=== PATIENT | female | born 1955 | race Caucasian/White ===

== ENCOUNTER → 2021-04-01 | Outpatient (CLI) | payer MEDICARE, OTHER ==
[~2021-04-01] MED LIST: INSDET100; METF500 PO
== END | disposition home or self-care (01) ==
LOC: LAB SHORT 17:04
DX: N39.0 Urinary tract infection, site not specified (principal)
CPT/HCPCS: 87077; 87086; 87186

== ENCOUNTER → 2021-08-05 | Outpatient (CLI) | payer MEDICARE, OTHER | END | disposition home or self-care (01) | LOC: LAB 15:57 → LAB SHORT 15:57 | DX: N39.0 Urinary tract infection, site not specified (principal) | CPT/HCPCS: 87077; 87086; 87186 ==

== ENCOUNTER → 2022-08-04 | Outpatient (CLI) | payer MEDICARE, OTHER | END | disposition home or self-care (01) | LOC: LAB 17:54 → LAB SHORT 17:54 | DX: R30.0 Dysuria (principal); R30.9 Painful micturition, unspecified | CPT/HCPCS: 87077; 87086; 87186 ==

== ENCOUNTER 2022-08-25 05:42 | Day surgery (SDC) | payer MEDICARE, OTHER ==
[~2022-08-25] VITALS: Ht 160 cm; Wt 84.8 kg
[2022-08-25] VITALS (22 sets, daily range): BP systolic 94–153; BP diastolic 48–106
[~2022-08-25 05:42] MED LIST changes: +ATOR10 PO; +BENADRYL25 MG; +METO50ER PO; +Prinivil10 MG PO
--- NOTE | 2022-08-25 12:53 | NUR ---
REPORT FROM ROULA NICHOLE RN. PT AXOX4, ABLE TO REPOSITION SELF IN BED. REPORTS DIZZINESS AND NAUSEA WHEN TRYING TO SNACK ON CRACKERS AND DRINK WATER. PT ALSO STATES 5/10 SHARP PAIN R INCISION SITE. PT REPOSITOINED, ICE PACK PROVIDED, ANTINAUSEA MED ORDERED PER DISCHARGE INSTRUCTIONS.
--- NOTE | 2022-08-25 13:44 | NUR ---
Patient up to Ambulate independently. Gait steady. Discharge instructions reviewed with patient. Patient verbalizes understanding. Copy given to patient to take home. Dressing to procedure site clean, dry, intact with no visible drainage, swelling, erythema or bruising noted. Patient States Post-Procedure ride home has been arranged. Discharged via wheelchair to private car for ride home. ALL BELONGINGS RETURNED TO PATIENT TO INCLUDE PRESCRIPTION GLASSES.
== END 2022-08-25 11:46 | disposition home or self-care (01) ==
LOC: ORSCMMR 05:42 → ORD 07:30 → ORSCMMR 07:30
PROVIDERS: Surgery
PROC: 8E0W4CZ Robotic Assisted Procedure of Trunk Region, Percutaneous Endoscopic Approach (ICD-10-PCS; principal; 2022-08-25 07:30)
PROC: 0YUA4JZ Supplement Bilateral Inguinal Region with Synthetic Substitute, Percutaneous Endoscopic Approach (ICD-10-PCS; principal; 2022-08-25 07:30)
DX: K40.00 Bilateral inguinal hernia, with obstruction, without gangrene, not specified as recurrent (principal); K41.20 Bilateral femoral hernia, without obstruction or gangrene, not specified as recurrent; K45.8 Other specified abdominal hernia without obstruction or gangrene; K21.9 Gastro-esophageal reflux disease without esophagitis; I12.9 Hypertensive chronic kidney disease with stage 1 through stage 4 chronic kidney disease, or unspecified chronic kidney disease; E11.22 Type 2 diabetes mellitus with diabetic chronic kidney disease; N18.30 Chronic kidney disease, stage 3 unspecified; Z79.84 Long term (current) use of oral hypoglycemic drugs; Z79.899 Other long term (current) drug therapy; Z87.891 Personal history of nicotine dependence
CPT/HCPCS: 49650; S2900; 82947; A9270; C1781; J1100; J1170; J1885; J2370; J2405; J2704; J2795; J3010; J7120

== ENCOUNTER → 2023-04-16 | Outpatient (CLI) | payer MEDICARE, OTHER | LOC: LAB SHORT 11:11 → LAB 11:11 | DX: N39.0 Urinary tract infection, site not specified (principal) | CPT/HCPCS: 87077; 87086; 87186 ==

== ENCOUNTER → 2023-10-14 | Outpatient (CLI) | payer MEDICARE, OTHER ==
[2023-10-14 13:52] LABS: BASOPHILS ABSOLUTE AUTO 0.07 K/mm3 (0.00-0.23); BASOPHILS PERCENT AUTO 1 % (0-2); EOSINOPHILS ABSOLUTE AUTO 0.16 K/mm3 (0.00-0.68); EOSINOPHILS PERCENT AUTO 1 % (0-6); Hematocrit 38.7 % (33.0-51.0); Hemoglobin 12.1 g/dL (11.5-16.0); IMMATURE GRAN ABSOLUTE AUTO 0.06 K/mm3 (0.00-0.10); IMMATURE GRAN PERCENT AUTO 1 % (0-1); LYMPHOCYTES ABSOLUTE AUTO 2.08 K/mm3 (0.84-5.20); LYMPHOCYTES PERCENT AUTO 18 % (21-46); MONOCYTES ABSOLUTE AUTO 0.74 K/mm3 (0.16-1.47); MONOCYTES PERCENT AUTO 6 % (4-13); Mean Corpuscular HGB 28.3 pg (26.0-34.0); Mean Corpuscular HGB Conc 31.3 g/dL (31.5-36.5); Mean Corpuscular Volume 90 fL (80-100); Mean Platelet Volume 10.7 fL (9.1-12.4); NEUTROPHILS ABSOLUTE AUTO 8.68 K/mm3 (1.96-9.15); NEUTROPHILS PERCENT AUTO 74 % (41-73); Platelet Count 196 K/mm3 (150-400); RDW Coefficient Variation 13.7 % (11.7-14.2); Red Blood Cell Count 4.28 M/mm3 (3.80-5.20); White Blood Cell Count 11.79 K/mm3 (4.00-11.30)
[2023-10-14 14:03] LABS: Albumin, Blood 3.6 g/dL (3.4-5.0); Albumin/Globulin Ratio 0.8 (0.8-1.8); Bilirubin, Total 0.4 mg/dL (0.1-1.0); Bun/Creatinine Ratio 11.4 (12.0-20.0); Calcium, Blood 9.4 mg/dL (8.5-10.1); Creatinine, Blood 1.05 mg/dL (0.40-1.00); Globulin, Blood 4.3 g/dL (2.2-4.0); Potassium, Blood 3.6 mmol/L (3.5-5.5); Total Protein, Blood 7.9 g/dL (6.4-8.2)
== END | disposition home or self-care (01) ==
LOC: LAB SHORT 13:48
PROVIDERS: Physician Assistant Surgical
DX: R10.13 Epigastric pain (principal); R11.2 Nausea with vomiting, unspecified
CPT/HCPCS: 80053; 83690; 85025

== ENCOUNTER 2023-11-22 00:44 | Emergency (ER) | payer MEDICARE, OTHER ==
[~2023-11-22] VITALS: Ht 165.1 cm; Wt 88.0 kg
[2023-11-22 01:25] LABS: BASOPHILS ABSOLUTE AUTO 0.08 K/mm3 (0.00-0.23); BASOPHILS PERCENT AUTO 1 % (0-2); EOSINOPHILS ABSOLUTE AUTO 0.18 K/mm3 (0.00-0.68); EOSINOPHILS PERCENT AUTO 2 % (0-6); Hematocrit 40.1 % (33.0-51.0); Hemoglobin 12.8 g/dL (11.5-16.0); IMMATURE GRAN ABSOLUTE AUTO 0.04 K/mm3 (0.00-0.10); IMMATURE GRAN PERCENT AUTO 0 % (0-1); LYMPHOCYTES ABSOLUTE AUTO 1.43 K/mm3 (0.84-5.20); LYMPHOCYTES PERCENT AUTO 13 % (21-46); MONOCYTES ABSOLUTE AUTO 0.63 K/mm3 (0.16-1.47); MONOCYTES PERCENT AUTO 6 % (4-13); Mean Corpuscular HGB 28.4 pg (26.0-34.0); Mean Corpuscular HGB Conc 31.9 g/dL (31.5-36.5); Mean Corpuscular Volume 89 fL (80-100); Mean Platelet Volume 11.2 fL (9.1-12.4); NEUTROPHILS PERCENT AUTO 79 % (41-73); Platelet Count 197 K/mm3 (150-400); RDW Coefficient Variation 14.5 % (11.7-14.2); RDW Standard Deviation 47.3 fL (35.1-46.3); White Blood Cell Count 11.26 K/mm3 (4.00-11.30)
[2023-11-22 01:44] LABS: Albumin, Blood 3.9 g/dL (3.4-5.0); Bilirubin, Total 0.4 mg/dL (0.1-1.0); Bun/Creatinine Ratio 18.6 (12.0-20.0); Calcium, Blood 10.1 mg/dL (8.5-10.1); Creatinine, Blood 1.13 mg/dL (0.40-1.00); Potassium, Blood 4.3 mmol/L (3.5-5.5); Total Protein, Blood 7.9 g/dL (6.4-8.2)
[2023-11-22] MEDS ORDERED: NS 1,000 ML IV SCH (01:45)
[2023-11-22] MEDS ORDERED: Ondansetron HCl 2 MG / ML 2ML Vial IV ONE (01:50)
[2023-11-22 02:08] VITALS: BP 140/88
[2023-11-22] MEDS ORDERED: ONDA4ODT MM (02:33)
== END 2023-11-22 02:43 | disposition home or self-care (01) ==
LOC: ER 00:44
PROVIDERS: Student in an Organized Health Care Education/Training Program
DX: U07.1 COVID-19 (principal); R79.89 Other specified abnormal findings of blood chemistry; E11.9 Type 2 diabetes mellitus without complications; I10 Essential (primary) hypertension; Z79.84 Long term (current) use of oral hypoglycemic drugs; Z79.899 Other long term (current) drug therapy; Z88.5 Allergy status to narcotic agent; Z91.041 Radiographic dye allergy status
CPT/HCPCS: 71045; 80053; 83690; 85025; 93005; 93010; 96361; 96374; 99285-25; J2405; J7030

== ENCOUNTER 2023-12-18 21:11 | Inpatient (IN) | payer MEDICARE, OTHER ==
[~2023-12-18] VITALS: Ht 165.1 cm; Wt 89.5 kg
[~2023-12-18 21:11] MED LIST changes: +ONDA4ODT MM
[2023-12-18] MEDS ORDERED: Ondansetron HCl 2 MG / ML 2ML Vial IV PRN (21:15)
[2023-12-18 21:49] LABS: BASOPHILS ABSOLUTE AUTO 0.11 K/mm3 (0.00-0.23); BASOPHILS PERCENT AUTO 1 % (0-2); EOSINOPHILS ABSOLUTE AUTO 0.15 K/mm3 (0.00-0.68); EOSINOPHILS PERCENT AUTO 1 % (0-6); Hematocrit 38.4 % (33.0-51.0); Hemoglobin 12.5 g/dL (11.5-16.0); IMMATURE GRAN ABSOLUTE AUTO 0.08 K/mm3 (0.00-0.10); IMMATURE GRAN PERCENT AUTO 1 % (0-1); LYMPHOCYTES ABSOLUTE AUTO 2.87 K/mm3 (0.84-5.20); LYMPHOCYTES PERCENT AUTO 19 % (21-46); MONOCYTES ABSOLUTE AUTO 0.89 K/mm3 (0.16-1.47); MONOCYTES PERCENT AUTO 6 % (4-13); Mean Corpuscular HGB 29.4 pg (26.0-34.0); Mean Corpuscular HGB Conc 32.6 g/dL (31.5-36.5); Mean Corpuscular Volume 90 fL (80-100); NEUTROPHILS ABSOLUTE AUTO 11.14 K/mm3 (1.96-9.15); NEUTROPHILS PERCENT AUTO 73 % (41-73); Platelet Count 226 K/mm3 (150-400); RDW Coefficient Variation 14.9 % (11.7-14.2); RDW Standard Deviation 49.1 fL (35.1-46.3); Red Blood Cell Count 4.25 M/mm3 (3.80-5.20); White Blood Cell Count 15.24 K/mm3 (4.00-11.30)
[2023-12-18 22:22] LABS: Alanine Aminotransfer (ALT/SGP 21 U/L (12-78); Albumin, Blood 3.8 g/dL (3.4-5.0); Albumin/Globulin Ratio 1.1 (0.8-1.8); Alk Phos 60 U/L (50-136); Anion Gap 15 mmol/L (3-11); Aspartate Aminotrans (AST/SGOT 19 U/L (12-37); Bilirubin, Total 0.5 mg/dL (0.1-1.0); Blood Urea Nitrogen 12 mg/dL (8-24); Bun/Creatinine Ratio 12.3 (12.0-20.0); CO2, Blood 18 mmol/L (21-32); Calcium, Blood 9.7 mg/dL (8.5-10.1); Chloride, Blood 114 mmol/L (98-108); Creatinine, Blood 0.98 mg/dL (0.40-1.00); Globulin, Blood 3.6 g/dL (2.2-4.0); Glomerular Filtration Rate 62 (60-); Glucose, Blood 193 mg/dL (70-99); Potassium, Blood 4.2 mmol/L (3.5-5.5); Sodium, Blood 143 mmol/L (136-145); Total Protein, Blood 7.4 g/dL (6.4-8.2)
[2023-12-18] MEDS ORDERED: FentaNYL Citrate 50 MCG/ML 2 ML Injection IV ONE (23:55)
[2023-12-18] MEDS ORDERED: Metoclopramide HCl 5MG / ML 2ML Vial IV ONE (23:55)
[2023-12-18] MEDS ORDERED: NS 1,000 ML IV SCH (23:55)
[2023-12-19 00:17] LABS: Triglycerides 147 mg/dL (30-160)
[2023-12-19] MEDS ORDERED: DiphenhydrAMINE HCl 50 MG/ML 1ML Vial IV ONE ×3 (00:45→16:10)
[2023-12-19] MEDS ORDERED: Prochlorperazine Edisylate 10 mg Vial IV ONE (00:45)
[2023-12-19] MEDS ORDERED: Lactated Ringer's 1,000 ML IV SCH ×3 (00:50→06:00)
[2023-12-19] MEDS ORDERED: Metoclopramide HCl 5MG / ML 2ML Vial IV ONE (04:05)
[2023-12-19] MEDS ORDERED: FentaNYL Citrate 50 MCG/ML 2 ML Injection IV ONE (04:05)
[2023-12-19 04:17] LABS: Source, Urine Clean Catch
[2023-12-19 04:32] LABS: Bilirubin, Urine Neg (Neg); Blood, Urine 3+ (Neg); Glucose Qualitative, Urine Neg (Neg); Ketones, Urine 3+ (Neg); Leukocyte Esterase, Urine 3+ (Neg); Nitrite, Urine Neg (Neg); Protein, Urine 1+ (Neg); Specific Gravity, Urine 1.025 (1.003-1.022); Urobilinogen, Urine 1+ (Normal)
[2023-12-19 04:48] LABS: Appearance, Urine Cloudy (Clear); Color, Urine Yellow (P-Yellow)
[2023-12-19 04:50] LABS: Amorphous Light (0-Heavy); Bacteria Mod /hpf; Squamous Epithelial Cells Few /hpf (Few); White Blood Cells, Urine 50-100 /hpf (0-5)
[2023-12-19] MEDS ORDERED: MethylPREDNISolone Sod Succ 125 MG Vial IV ONE ×2 (04:50→16:10)
[2023-12-19 04:58] LABS: Base Excess Venous -2.7 mmol/L; Bicarbonate Venous 22.6 mmol/L (24.0-30.0); PCO2 Venous 33.4 mmHg (38-42); pH Blood Venous 7.42 (7.34-7.37)
[2023-12-19] MEDS ORDERED: FentaNYL Citrate 50 MCG/ML 2 ML Injection IV PRN (05:05)
[2023-12-19] MEDS ORDERED: Acetaminophen 650 MG Supp PR PRN (05:05)
[2023-12-19] MEDS ORDERED: Naloxone HCl 0.4MG / ML 1ML Vial IV PRN (05:10)
[2023-12-19] MEDS ORDERED: Ondansetron HCl 2 MG / ML 2ML Vial IV PRN (05:10)
[2023-12-19] MEDS ORDERED: FLU VACC TS2024-25(6MOS UP)/PF 45 MCG/0.5 ML SYRINGE IM ONE (05:10)
[2023-12-19] MEDS ORDERED: Acetaminophen 325 MG TABLET PO PRN (05:10)
[2023-12-19] MEDS ORDERED: Prochlorperazine Edisylate 10 mg Vial IV PRN (05:10)
[2023-12-19] MEDS ORDERED: Insulin Regular 100 UNIT/ML 10ML Vial SC SCH (06:00)
[2023-12-19] MEDS ORDERED: CefTRIAXone Sodium 1,000 MG in NS 100 ML IV SCH (06:00)
[2023-12-19] MEDS ORDERED: Lactobacil 2-S.Thermo-Bifido 1 1 Cap PO SCH (09:00)
[2023-12-19] MEDS ORDERED: Docusate Sodium 100 MG Cap PO SCH (09:00)
[2023-12-19] MEDS ORDERED: Metoclopramide HCl 5MG / ML 2ML Vial IV PRN (10:55)
[2023-12-19] MEDS ORDERED: Pantoprazole Sodium 40 MG Injection IV SCH ×2 (11:05→21:00)
[2023-12-19] MEDS ORDERED: Ondansetron HCl 2 MG / ML 2ML Vial IV ONE (13:55)
[2023-12-19] MEDS ORDERED: Piperacillin/Tazobactam Sod 3.375 GM in NS 100 ML IV SCH (14:00)
[2023-12-19 14:28] LABS: BASOPHILS ABSOLUTE AUTO 0.01 K/mm3 (0.00-0.23); BASOPHILS PERCENT AUTO 0 % (0-2); EOSINOPHILS PERCENT AUTO 0 % (0-6); Hematocrit 33.4 % (33.0-51.0); Hemoglobin 10.9 g/dL (11.5-16.0); IMMATURE GRAN ABSOLUTE AUTO 0.07 K/mm3 (0.00-0.10); IMMATURE GRAN PERCENT AUTO 1 % (0-1); LYMPHOCYTES ABSOLUTE AUTO 0.67 K/mm3 (0.84-5.20); LYMPHOCYTES PERCENT AUTO 9 % (21-46); MONOCYTES ABSOLUTE AUTO 0.09 K/mm3 (0.16-1.47); MONOCYTES PERCENT AUTO 1 % (4-13); Mean Corpuscular HGB 29.9 pg (26.0-34.0); Mean Corpuscular HGB Conc 32.6 g/dL (31.5-36.5); Mean Corpuscular Volume 92 fL (80-100); Mean Platelet Volume 11.1 fL (9.1-12.4); NEUTROPHILS PERCENT AUTO 88 % (41-73); Platelet Count 149 K/mm3 (150-400); RDW Coefficient Variation 15.2 % (11.7-14.2); RDW Standard Deviation 50.7 fL (35.1-46.3); Red Blood Cell Count 3.65 M/mm3 (3.80-5.20); White Blood Cell Count 7.24 K/mm3 (4.00-11.30)
[2023-12-19 14:36] LABS: Albumin, Blood 3.1 g/dL (3.4-5.0); Albumin/Globulin Ratio 0.9 (0.8-1.8); Bilirubin, Total 0.4 mg/dL (0.1-1.0); Bun/Creatinine Ratio 15.6 (12.0-20.0); Calcium, Blood 9.2 mg/dL (8.5-10.1); Creatinine, Blood 0.83 mg/dL (0.40-1.00); Globulin, Blood 3.3 g/dL (2.2-4.0); Potassium, Blood 4.3 mmol/L (3.5-5.5); Total Protein, Blood 6.4 g/dL (6.4-8.2)
[2023-12-19 15:05] VITALS: BP 143/84
--- NOTE | 2023-12-19 16:07 | NUR ---
GOT VERBAL CONSENT OVER THE PHONE TO GIVE PRE MEDICATIONS AND GET THE CT WITH CONTRAST DONE.
[2023-12-19] MEDS ORDERED: Famotidine 10 MG/ML 2ML Vial IV ONE (16:10)
--- NOTE | 2023-12-19 16:38 | NUR ---
UPDATE; DR MISTRY CALLED TO CANCEL CT ABD WITH CONTRAST PT HAS AN ACCEPTING BED IN [facility] TO TRANSFER. TO GET CT SCAN DONE AT THE ACCEPTING HOSPITAL. OR FOR NGT TO LOW INTERMMITTENT SUCTION
[2023-12-19 16:39] VITALS: BP 143/84
[2023-12-19 16:45] VITALS: BP 143/84
[2023-12-19] MEDS ORDERED: Pantoprazole Sodium 40 MG in NS 50 ML IV SCH (17:25)
--- NOTE | 2023-12-19 17:57 | NUR ---
DISCHARGE NOTE: PT A&OX4 AND ACTIVE IN HER CARE. IS SATTING >92% ON ROOM AIR. ON TELE SHOWING SINUS TACH WITH RATE 110-120, AFEBRILE. PT HAS BEEN NAUSEATED SINCE ARRIVAL, HAD 7 BLACK/BROWN EMESIS. CBG WAS IN THE 200'S, PT STRICT NPO AT THIS TIME. NO COVERAGE FOR BLOOD SUGARS WERE GIVEN. CT WITH CONTRAST WAS CANCELLED DUE TO PATIENT TRANSFERRING WITH AN ACCEPTING BED AT [facility] IN [place]. NG TUBE ORDERED AND IN PLACED CONNECTED TO LOW INTERMITTEN SUCTION AND CONFIRMED WITH X-RAY. HAD 100MLS DRAINAGE VIA NG TUBE THAT WAS BLACK/BROWN. CALLED MD AND ORDERED PROTONIX DRIP THAT WAS STARTED WITH A NEW INSERTION OF A 20 GAUGE IN THE LEFT AC. ANTIBIOTIC WAS GIVEN IN ROOM. TRANSPORTATION ARRIVED AT APPROXIAMTELY 1800 AND PATIENT WAS TRANSFERRED VIA GURNEY, ALL BELONGINGS WERE TAKEN, LR CURRENTLY INFUSING AT 150MLS/HR AND PROTONIX DRIP. SON YESSY WAS NOTIFIED AND MADE AWARE OF THE TRANSFER, STATED HE WOULD UPDATE HIS BROTHER.
[2023-12-19] MEDS ORDERED: Ondansetron HCl 2 MG / ML 2ML Vial IV SCH (18:00)
== END 2023-12-19 18:00 | disposition short-term general hospital (02) | DRG 637 ==
LOC: ER 21:11 → ERHOLD 21:12 → PCU 12-19 15:04
PROVIDERS: Emergency Medicine; Internal Medicine; Student in an Organized Health Care Education/Training Program; ADMIT Student in an Organized Health Care Education/Training Program
PROC: 0DH67UZ Insertion of Feeding Device into Stomach, Via Natural or Artificial Opening (ICD-10-PCS; principal; 2023-12-19)
DX: E11.10 Type 2 diabetes mellitus with ketoacidosis without coma (principal); A41.9 Sepsis, unspecified organism; K85.90 Acute pancreatitis without necrosis or infection, unspecified; N39.0 Urinary tract infection, site not specified; K80.20 Calculus of gallbladder without cholecystitis without obstruction; K44.9 Diaphragmatic hernia without obstruction or gangrene; Z66 Do not resuscitate; K21.9 Gastro-esophageal reflux disease without esophagitis; E86.0 Dehydration; N18.31 Chronic kidney disease, stage 3a; Z96.653 Presence of artificial knee joint, bilateral; K74.60 Unspecified cirrhosis of liver; E11.22 Type 2 diabetes mellitus with diabetic chronic kidney disease; I12.9 Hypertensive chronic kidney disease with stage 1 through stage 4 chronic kidney disease, or unspecified chronic kidney disease; Z88.5 Allergy status to narcotic agent; Z91.041 Radiographic dye allergy status; Z79.84 Long term (current) use of oral hypoglycemic drugs; Z79.899 Other long term (current) drug therapy; Z87.442 Personal history of urinary calculi; Z98.890 Other specified postprocedural states; Z98.1 Arthrodesis status; N18.9 Chronic kidney disease, unspecified; E11.69 Type 2 diabetes mellitus with other specified complication; D53.9 Nutritional anemia, unspecified
CPT/HCPCS: 36415; 71045; 74022; 74176; 80053; 81001; 82010; 82607; 82746; 82803; 82947; 83036; 83605; 83690; 84478; 84484; 85025; 87086; 93005; 93010; 96361; 96365; 96375; 96376; 99285-25; G0378; J0696; J0780; J1200; J1815; J2405; J2470; J2543; J2765; J2919; J3010; J7030; J7120

== ENCOUNTER → 2024-11-05 | Outpatient (CLI) | payer MEDICARE, OTHER | LOC: LAB 11:53 → LAB SHORT 11:53 | DX: N39.0 Urinary tract infection, site not specified (principal); R31.9 Hematuria, unspecified | CPT/HCPCS: 87077; 87086; 87186 ==